=== PATIENT | female | born 1975 | race Hispanic/Latino ===

== ENCOUNTER 2021-05-28 13:36 | Emergency (ER) | payer OTHER ==
[2021-05-28 15:59] LABS: Urine Blood Trace-intact (Negative); Urine Glucose Negative (Negative); Urine Protein Negative (Negative); Urine pH 8.5 (5.0-7.0)
--- NOTE | 2021-05-28 16:31 | RAD REPORT ---
EXAM DESCRIPTION: CT - Spine Lumbar Wo Con - 05/28/2021 4:01 pm CLINICAL HISTORY: PAIN COMPARISON: None. TECHNIQUE: Thin section axial imaging of the lumbar spine was performed. Sagittal and coronal recon struction images were generated and reviewed. All CT scans are performed using dose optimization technique as appropriate and may include automated exposure control or mA/KV adjustment according to patient size. FINDINGS: Lumbar bodies are normal in height. No alignment abnormality seen. L4-5 and L5-S1 degenera tive disc disease is present with loss in disc height. There is degenerative gas in the L5-S1 disc sp reena. No fracture or acute vertebral body finding identifiable. No pars defects are seen. No significa nt facet joint degenerative change. L4-5 disc bulge changes are present extending into each exit foramen. No significant foraminal stenos is identified. L5-S1 disc bulge changes are also present causing mild foraminal stenosis. There is no central spinal stenosis. IMPRESSION: Patient has prominent for age degenerative disc disease L4-5 and L5-S1. Central canal detail is inherently limited. No suspicion for central disc herniation and no central s carlos stenosis seen.
[2021-05-28] MEDS ORDERED: KETOROLAC 30 MG/ML INJ ONE (16:40)
--- NOTE | 2021-05-28 16:41 | RAD REPORT ---
EXAM DESCRIPTION: Shoulder Right 2 View - 05/28/2021 4:20 pm CLINICAL HISTORY: PAIN COMPARISON: No comparisons TECHNIQUE: Internal and external rotation views of the right shoulder were obtained. FINDINGS: There is no fracture or dislocation. AC joint is normal in appearance. No acute or suspic ious findings. IMPRESSION: Negative two-view right shoulder examination.
--- NOTE | 2021-05-28 16:47 | EDPHYS ---
Physician Documentation [facility] Name: Sara Cohen Age: 46 yrs Sex: Female : 1975 Arrival Date: 05/28/2021 Time: 13:39 Bed 5 Private MD: BALDO Physician Tapan Hoffmann HPI: 05/28 15:35 This 46 yrs old Female presents to ER via Ambulatory with complaints of Low cp Back Pain, Hip Pain. 15:35 The patient presents with pain that is acute. The symptoms are located in the low back. cp The pain radiates to the right hip. Onset: The symptoms/episode began/occurred 2 day(s) ago. Associated signs and symptoms: Pertinent negatives: abdominal pain, chest pain, dysuria, incontinence, numbness, tingling, weakness. Patient reports pain to low back increased and worsened 2 days ago after using exercise bike. Patient reports pain radiates to right hip. Historical: - Allergies: 14:11 No Known Allergies; sv - PMHx: 14:11 None; sv - PSHx: 14:11 section; sv - Immunization history:: Client reports receiving the 1st dose of the Covid vaccine. - Social history:: Smoking status: Patient denies any tobacco usage or history of. ROS: 15:40 Back: Positive for pain at rest, pain with movement, of the lumbar area and right low cp back. 15:40 Eyes: Negative for injury, pain, redness, and discharge. cp 15:40 Constitutional: Negative for body aches, chills, fever, poor PO intake. 15:40 ENT: Negative for ear pain, sore throat, difficulty swallowing, difficulty handling secretions. 15:40 Cardiovascular: Negative for chest pain, palpitations. 15:40 Respiratory: Negative for cough, shortness of breath, wheezing. 15:40 Abdomen/GI: Negative for abdominal pain, diarrhea, constipation, bowel incontinence. 15:40 : Negative for urinary symptoms, bladder incontinence. 15:40 Neuro: Negative for numbness, tingling, weakness. 15:40 All other systems are negative. Exam: 15:45 Constitutional: The patient appears in no acute distress, alert, awake, non-toxic, well cp developed, well nourished, uncomfortable. 15:45 Chest/axilla: Inspection: normal. 15:45 Cardiovascular: Rate: normal. 15:45 Respiratory: the patient does not display signs of respiratory distress, Respirations: normal, no use of accessory muscles, no retractions, labored breathing, is not present. 15:45 Abdomen/GI: Inspection: abdomen appears normal, Palpation: abdomen is soft and non-tender, in all quadrants. 15:45 Back: pain, that is moderate, of the lumbar area and right low back, ROM is painful, with all movement, Straight leg raises: of both lower extremities does not illicit pain. 15:45 Neuro: Motor: moves all fours, strength is normal, Sensation: is normal, Gait: is steady, Deep tendon reflexes are 2+ (normal) in the right patellar, right Achilles, left patellar and left Achilles. Vital Signs: 14:11 BP 99 / 82; Pulse 68; Resp 16; Temp 98.2; Pulse Ox 100% ; Weight 68.04 kg; Height 5 ft. sv 1 in. (154.94 cm); Pain 7/10; 14:11 Body Mass Index 28.34 (68.04 kg, 154.94 cm) sv MDM: 15:18 Patient medically screened. cp 15:28 ED course: review of [place] prescription monitor program website shows narcotic score of cp 240, sedative score of 140 and overdose risk score of 300. Patient last given prescription for narcotics on 04-01-2021 for #30 Tylenol #3. 15:45 Differential diagnosis: sciatica, Herniated disc cauda equina, spinal stenosis. cp 16:45 Data reviewed: vital signs, nurses notes, lab test result(s), radiologic studies, CT cp scan. 16:45 Counseling: I had a detailed discussion with the patient and/or guardian regarding: the cp historical points, exam findings, and any diagnostic results supporting the discharge/admit diagnosis, lab results, radiology results, the need for outpatient follow up, a paperhanger and painter, to return to the emergency department if symptoms worsen or persist or if there are any questions or concerns that arise at home. Response to treatment: the patient's symptoms have markedly improved after treatment, and as a result, I will discharge patient. 05/28 15:58 Order name: Urine Dipstick-Ancillary; Complete Time: 16:23 EDMS 05/28 16:23 Interpretation: Normal except: UPH 8.5; UBLD Trace-intact. cp 07/06 16:02 Order name: Urine --Ancillary (enter results); Complete Time: 16:23 bd 05/28 15:39 Order name: Urine Dipstick-Ancillary (obtain specimen); Complete Time: 15:58 cp 05/28 15:39 Order name: CT Lumbar Spine Wo Con; Complete Time: 16:35 cp 05/28 16:35 Interpretation: Report reviewed. cp 05/28 15:39 Order name: XRAY Shoulder RIGHT 2 view; Complete Time: 16:55 cp 05/28 16:55 Interpretation: Reviewed. cp 05/28 15:39 Order name: Urine Test (obtain specimen); Complete Time: 15:59 cp Administered Medications: 16:00 Drug: TORadol (ketorolac) 30 mg Route: IM; Site: right gluteus; bp 16:52 Follow up: Response: No adverse reaction; Pain is decreased bp Disposition: 17:00 Chart complete. cp 18:54 Co-signature as Attending Physician, Tapan Hoffmann MD I agree with the assessment and mendoza plan of care. Disposition Summary: 05/28/21 16:46 Discharge Ordered Location: Home cp Problem: new cp Symptoms: have improved cp Condition: Stable cp Diagnosis - Low back pain cp - Radiculopathy, lumbosacral region cp - Pain in right shoulder cp Followup: cp - With: Ulices Velasquez DO - When: 2 - 3 days - Reason: Recheck today's complaints Discharge Instructions: - Discharge Summary Sheet cp - Acute Back Pain, Adult cp - Lumbosacral Radiculopathy cp - Heat Therapy cp - Back Exercises cp Forms: - Medication Reconciliation Form cp - Thank You Letter cp - Antibiotic Education cp - Prescription Opioid Use cp - Work release form iw Prescriptions: - Cyclobenzaprine 10 mg Oral Tablet - take 1 tablet by ORAL route every 8 hours As needed; 20 tablet; Refills: 0, cp Product Selection Permitted - Medrol (David) 4 mg Oral Tablets, Dose Pack - take 1 tablet by ORAL route as directed - follow package instructions; 1 cp packet; Refills: 0, Product Selection Permitted - Tramadol 50 mg Oral Tablet - take 1 tablet by ORAL route every 8 hours as needed; 12 tablet; Refills: 0, cp Product Selection Permitted Signatures: Dispatcher [employer] Jenny Davenport, RN RN sv Tapan Hoffmann MD MD cha Page, Corey, PA PA Rigo Hoyos, RN RN bp Corrections: (The following items were deleted from the chart) 14:11 14:11 PSHx: None; [facility] 05/27 15:45 Constitutional: The patient appears in no acute distress, alert, awake, cp non-toxic, well developed, well nourished, uncomfortable, 05/28 15:45 Chest/axilla: Inspection: normal, cp 05/28 21:05/27 15:45 Cardiovascular: Rate: normal, cp 05/28 21:05/27 15:45 Respiratory: the patient does not display signs of respiratory distress, cp Respirations: normal, no use of accessory muscles, no retractions, labored breathing, is not present, cp 05/28 21:05/27 15:45 Abdomen/GI: Inspection: abdomen appears normal, Palpation: abdomen is soft cp and non-tender, in all quadrants, 05/28 15:45 Back: pain, that is moderate, of the lumbar area and right low back, ROM is cp painful, with all movement, Straight leg raises: of both lower extremities does not illicit pain, cp 05/28 15:45 Neuro: Motor: moves all fours, strength is normal, Sensation: is normal, cp Gait: is steady, Deep tendon reflexes are 2+ (normal) in the right patellar, right Achilles, left patellar and left Achilles, cp
--- NOTE | 2021-05-28 16:47 | ER ---
Nurse's Notes [facility] Name: Sara Cohen Age: 46 yrs Sex: Female : 1975 Arrival Date: 05/28/2021 Time: 13:39 Bed 5 Private MD: Diagnosis: Low back pain;Radiculopathy, lumbosacral region;Pain in right shoulder Presentation: 05/28 14:10 Chief complaint: Patient states: R hip pain x 2 days. "I think I have a pinched sv nerve.". Coronavirus screen: Client denies travel out of the [place] in the last 14 days. At this time, the client does not indicate any symptoms associated with coronavirus-19. Ebola Screen: No symptoms or risks identified at this time. Risk Assessment: Do you want to hurt yourself or someone else? Patient reports no desire to harm self or others. Onset of symptoms was May 26, 2021. 14:10 Method Of Arrival: Ambulatory sv 14:10 Acuity: RANDELL 4 sv 14:11 Initial Sepsis Screen: Does the patient meet any 2 criteria? No. Patient's initial sv sepsis screen is negative. Does the patient have a suspected source of infection? No. Patient's initial sepsis screen is negative. Triage Assessment: 14:13 General: Appears in no apparent distress. uncomfortable, Behavior is calm, cooperative, sv appropriate for age. Pain: Complains of pain in right hip. Neuro: Level of Consciousness is awake, alert, obeys commands, Oriented to person, place, time, situation, Gait is steady. Respiratory: Respiratory effort is even, unlabored. Historical: - Allergies: 14:11 No Known Allergies; sv - PMHx: 14:11 None; sv - PSHx: 14:11 section; sv - Immunization history:: Client reports receiving the 1st dose of the Covid vaccine. - Social history:: Smoking status: Patient denies any tobacco usage or history of. Screenin:15 Abuse screen: Denies threats or abuse. Denies injuries from another. Nutritional bp screening: No deficits noted. Tuberculosis screening: No symptoms or risk factors identified. Fall Risk None identified. Assessment: 15:15 General: SEE TRIAGE NOTE. bp 16:30 Reassessment: No changes from previously documented assessment. Patient and/or family bp updated on plan of care and expected duration. Pain level reassessed. Patient is alert, oriented x 3, equal unlabored respirations, skin warm/dry/pink. 16:56 Reassessment: Patient appears in no apparent distress at this time. Patient and/or iw family updated on plan of care and expected duration. Pain level reassessed. Patient is alert, oriented x 3, equal unlabored respirations, skin warm/dry/pink. Patient states feeling better. Patient states symptoms have improved. Vital Signs: 14:11 BP 99 / 82; Pulse 68; Resp 16; Temp 98.2; Pulse Ox 100% ; Weight 68.04 kg; Height 5 ft. sv 1 in. (154.94 cm); Pain 7/10; 14:11 Body Mass Index 28.34 (68.04 kg, 154.94 cm) sv ED Course: 13:39 Patient arrived in ED. rg4 14:11 Triage completed. sv 14:11 Arm band placed on. sv 15:14 Tapan Cantrell PA is PHCP. cp 15:14 Tapan Hoffmann MD is Attending Physician. cp 15:15 Patient taken to an exam room, ambulatory. sv 15:15 Patient has correct armband on for positive identification. Bed in low position. Call bp light in reach. Side rails up X2. 15:27 Rigo Hoyos, ANN is Primary Nurse. bp 16:01 CT Lumbar Spine Wo Con In Process Unspecified. EDMS 16:20 XRAY Shoulder RIGHT 2 view In Process Unspecified. EDMS 16:45 Ulices Velasquez DO is Referral Physician. cp 16:56 No provider procedures requiring assistance completed. Patient did not have IV access iw during this emergency room visit. Administered Medications: 16:00 Drug: TORadol (ketorolac) 30 mg Route: IM; Site: right gluteus; bp 16:52 Follow up: Response: No adverse reaction; Pain is decreased bp Outcome: 16:46 Discharge ordered by . cp 16:56 Discharged to home ambulatory. iw 16:56 Condition: good 16:56 Discharge instructions given to patient, Instructed on discharge instructions, follow up and referral plans. medication usage, Demonstrated understanding of instructions, follow-up care, medications, Prescriptions given X 3. 16:56 Patient left the ED. iw Signatures: Dispatcher [employer] Jenny Davenport RN RN sv Pamela Wu RN RN iw Tapan Cantrell PA PA cp Garcia, Rubi rg4 Rigo Hoyos RN RN bp Corrections: (The following items were deleted from the chart) 14:11 14:11 PSHx: None; sv sv 14:13 14:11 Pulse 68bpm; Resp 16bpm; Pulse Ox 100%; Temp 98.2F; 68.04 kg; Height 5 ft. 1 in.; sv BMI: 28.3; Pain 7/10; sv
[2021-05-28 17:08] VITALS: BP 99/82; TEMP 98.2; O2SAT 100
== END 2021-05-28 16:56 | disposition home or self-care (01) ==
LOC: ER 13:36
DX: M54.17 Radiculopathy, lumbosacral region (principal); M25.511 Pain in right shoulder
CPT/HCPCS: 72131; 81003; 81025; 96372; 99283